=== PATIENT | female | born 1930 | race Caucasian/White ===

== ENCOUNTER → 2017-05-18 | Outpatient (CLI) | payer MEDICARE, OTHER, BC ==
[~2017-05-18] MED LIST: GADOBUTROL 7.5 MMOL/7.5 ML VIAL IV ONE; IRBE300T3 PO; PRED5DRO16 OP; THIA50TA2 PO
--- NOTE | 2017-05-18 09:49 | KCIC ---
EXAM: Chest MRI with and without contrast. HISTORY: Palpable lump on the right posterior back. TECHNIQUE: Multiplanar and multisequence magnetic resonance imaging of the chest was performed prior to and following the administration of 5 cc Gadavist intravenous contrast. COMPARISON: None. FINDINGS: There is a 6.3 x 5.8 x 2.4 cm fat signal lesion within the right posterior back subcutaneous soft tissues inferior to the right scapula. This corresponds with the site of palpable concern, demarcated by skin markers for the exam. This demonstrates no internal enhancement. The adjacent posterior back and shoulder musculature and osseous structures are unremarkable. No additional lesion is seen within this location. There is posterior dependent atelectasis within the right lung. No axillary lymphadenopathy is seen. The right shoulder is not completely included on the [id number] to assess for shoulder internal derangement. The visualized thoracic spine is unremarkable. 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 Continued clinical follow-up of palpable abnormalities is recommended. Repeat cross-sectional or sonographic imaging can be performed if there is continuing concern based on physical exam findings. Electronically signed by: Shena Tobias MD (05/18/2017 9:46 AM) [id number]
== END | disposition home or self-care (01) ==
LOC: KCIC MRI 07:40
PROVIDERS: ATTEND Internal Medicine
DX: R22.2 Localized swelling, mass and lump, trunk (principal)
CPT/HCPCS: 71552; 82565; A9585

== ENCOUNTER → 2019-01-24 | Outpatient (CLI) | payer MEDICARE, OTHER, BC ==
[~2019-01-24] MED LIST changes: -GADOBUTROL 7.5 MMOL/7.5 ML VIAL IV ONE
--- NOTE | 2019-01-24 16:56 | KCIC ---
MRI STUDY OF THE LEFT ANKLE WITHOUT CONTRAST Clinical indications: Left ankle pain for 3 weeks. Pain shoots up the leg. Pain started after getting out of bed. TECHNIQUE: Noncontrast MRI sequences of the left ankle were performed in all 3 planes. COMPARISON: None available. FINDINGS: No bone marrow edema or fracture or marrow infiltrative process is seen. No focal osteochondral abnormality of the dome of the talus or the tibial plafond is seen. Small plantar spur of the calcaneus is seen. The plantar aponeurosis is intact and no bone marrow edema or soft tissue edema is seen here. A posterior spur of the calcaneus is seen at the attachment of the Achilles tendon. The Achilles tendon is normal otherwise. The flexor and peroneal and extensor tendons are intact. No tenosynovitis is seen. The flexor and extensor and peroneal retinacular ligaments are intact. The distal interosseous ligament and the anterior/posterior tibiofibular ligaments and anterior/posterior talofibular ligaments are intact. The deltoid ligament and calcaneofibular ligament and spring ligament are intact. Sinus tarsi is normal and the cervical and talocalcaneal ligaments are intact. No osseous tarsal coalition is seen. No mortise ankle joint effusion is seen. Small posterior subtalar joint effusion is seen. There is mild degenerative spurring of this joint compartment. There is mild soft tissue edema of the pre-Achilles fat pad around the distended posterior joint recess of the posterior subtalar joint compartment. IMPRESSION: No acute osseous abnormality. No ligament or tendon tear. Small plantar spur of the calcaneus. The plantar aponeurosis is intact. Pre-Achilles fat pad soft tissue edema is seen. This is seen extending around a prominent posterior joint recess of the posterior subtalar joint. Small joint effusion is seen here. Mild degenerative spurring is seen here. It is possible that this may represent a periarticular ganglion cyst which could have conceivably ruptured causing the pre-Achilles fat pad edema. Electronically signed by: Faisal Lorenzo MD (01/24/2019 4:54 PM) [facility] [id number]
== END | disposition home or self-care (01) ==
LOC: KCIC MRI 15:41
PROVIDERS: ATTEND Orthopaedic Surgery
DX: M77.32 Calcaneal spur, left foot (principal); M25.472 Effusion, left ankle; E65 Localized adiposity; R60.0 Localized edema
CPT/HCPCS: 73721

== ENCOUNTER → 2019-02-08 | Outpatient (CLI) | payer MEDICARE, OTHER, BC ==
--- NOTE | 2019-02-08 16:40 | KCIC ---
MRI Lumbar Spine without contrast History: Degenerative disc disease, low back pain, left leg pain Technique: Multiplanar, multi sequential noncontrast MR imaging was performed of the lumbar spine. Comparison: None Findings: There is old superior compression deformity of L3. There is also superior L1 compression deformity which is likely older, trace edema at site of maximal height loss. There is grade 1 anterior spondylolisthesis at L4-5 and L3-4, very minimal posterior subluxation L1 relative to L2 and T12 relative to L1. There is moderate to severe degenerative disc disease at L4-5, mild to moderate degenerative disc disease L3-4 and minimally L2-3, L1-2, L5-S1. There is also degenerative disc disease with vacuum phenomenon at T12-L1. Conus terminates at T12-L1. There is hemangioma T11 vertebral body. 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 T11-12: This level was not included on the axial images. There is a very shallow posterior protrusion. Facet degenerative change contributes to moderate neural foramina compromise from posteriorly bilaterally. T12-L1: There is minimal disc osteophyte complex and bulge, mild indentation upon the ventral thecal sac greater in the lateral recesses, left greater than right. There is mild narrowing of the far left lateral recess. There is minimal buckling of the ligamentum flavum. There is mild neural foramina compromise bilaterally. L1-L2: There is posterior bulge/broad protrusion superimposed on the posteriorly subluxed L1 vertebral body margin, indentation upon the ventral thecal sac greater in the left lateral recess. There is mild narrowing of the far left lateral recess, contact of the descending left L2 nerve root. There is mild facet degenerative change. There is moderate narrowing of the left neural foramen, mild narrowing on the right. L2-L3: There is moderate facet degenerative change and mild buckling of the ligamentum flavum. There is a minimal disc osteophyte complex and bulge. Spinal canal is overall adequate. Left neural foramen is adequate, mild narrowing of the right neural foramen. L3-L4: There is right laminectomy defect. There is moderate facet hypertrophic change. There is negligible bulge. Spinal canal is overall adequate. Neural foramina are overall adequate. L4-L5: There is fairly severe facet degenerative change and mild buckling of the ligamentum flavum. There is posterior bulge. There is moderate to severe narrowing of the far lateral recesses bilaterally primarily from posteriorly by facets with contact of the descending L5 nerve roots, central canal overall adequate. There is mild narrowing of the left neural foramen, right neural foramen adequate. L5-S1: There is moderate facet degenerative change and mild buckling of the ligamentum flavum. There is mild to moderate narrowing of the far right lateral recess from posteriorly. Neural foramina are overall adequate. Impression: 1. There is multilevel lumbar degenerative disc disease greatest at L4-5. There is multilevel mild abnormal alignment, multilevel facet degenerative change. There is variable lateral recess stenosis as stated most notable bilaterally at L4-5 with contact of the descending L5 nerve roots, lesser degree of narrowing on the right at L5-S1 and of the far left lateral recesses at L1-2 and T12-L1. There is moderate narrowing of the left L1-L2 and bilateral T11-T12 neural foramina, other mild narrowing as stated. Electronically signed by: Jhonny Lindsey MD (02/08/2019 4:37 PM) [id number]
== END | disposition home or self-care (01) ==
LOC: KCIC MRI 15:00
PROVIDERS: ATTEND Internal Medicine
DX: M51.36 Other intervertebral disc degeneration, lumbar region (principal); M48.05 Spinal stenosis, thoracolumbar region; M43.5X Other recurrent vertebral dislocation; M43.15 Spondylolisthesis, thoracolumbar region; M25.78 Osteophyte, vertebrae; M89.38 Hypertrophy of bone, other site
CPT/HCPCS: 72148

== ENCOUNTER → 2019-03-11 | Outpatient (CLI) | payer MEDICARE, OTHER, BC ==
[~2019-03-11] MED LIST changes: +GLYCOPYRROLATE 1 MG/5 ML SYRINGE. ONE; +GLYCOPYRROLATE 1 MG/5 ML VIAL. ONE; +HYDROmorphone 2 MG/ML VIAL IV PRN; +IV RINGERS,LACTATED 1000ML 1,000 ML IV SCH; +KETAMINE HCL IN NACL, ISO-OSM 50 MG/5 ML SYRINGE ONE; +LIDOCAINE 1% PF 2 ML VIAL. ID PRN; +MIDAZOLAM HCL/PF 2 MG/2 ML VIAL. ONE; +MORPHINE SULFATE 2 MG/ML VIAL. IV PRN; +ONDANSETRON PF 4 MG/2 ML VIAL. IV PRN; +PROCHLORPERAZINE 10 MG/2 ML VIAL. IV PRN; +PROPOFOL 10 MG/ML (20ML) VIAL. IV ONE; +PROPOFOL 10 MG/ML (50ML) VIAL. IV ONE; +PROPOFOL 20 ML IV ONE; +PROPOFOL 50 ML IV ONE; +fentaNYL PF VIAL 100 MCG/2 ML VIAL IV PRN; +hydrALAZINE 20 MG/ML VIAL. IVP ONE
[2019-03-11 13:25] VITALS: BP 167/80
--- NOTE | 2019-03-11 16:48 | RAD ---
MR of the left hip HISTORY: Worsening left hip pain for 2 months. TECHNIQUE: Routine multiplanar sequences are obtained. FINDINGS: No evidence of bone destruction, acute fracture, marrow edema or femoral head osteonecrosis. No significant joint effusion. There is irregularity and deformity of the labrum compatible with a degenerative tear, greatest superiorly. Mild degenerative changes at the left hip. Gluteus minimus and medius tendon attachments are intact. Hamstring tendon attachment intact. Iliopsoas tendon is intact. There is an ovoid region of signal void in the left pelvis measuring 5.5 cm. This consists of signal void on T1-weighted and T2-weighted images. This could represent a focal bowel loop or large diverticulum. IMPRESSION: 1. Left labral tear. 2. Ovoid region of signal void in the left pelvis, could represent a bowel loop or large diverticulum. CT scan could further evaluate. Electronically signed by: Real Miller MD (03/11/2019 4:45 PM) [id number]
== END | disposition home or self-care (01) ==
LOC: SURG 14:32
PROVIDERS: ATTEND Internal Medicine
DX: S73.102A Unspecified sprain of left hip, initial encounter (principal); M16.12 Unilateral primary osteoarthritis, left hip; X58.XXXA Exposure to other specified factors, initial encounter; Y93.89 Activity, other specified; Y92.89 Other specified places as the place of occurrence of the external cause; Y99.8 Other external cause status
CPT/HCPCS: 73721; J0360; J2250; J2704; J3010; J3490